=== PATIENT | female | born 1955 ===

== ENCOUNTER 2016-08-17 19:04 | Inpatient (IN) | payer OTHER ==
--- NOTE | ~2016-08-17 | HP ---
History And Physical [address] [place]. [address] NAME: TASHA LEE : 59 STATUS : ADM IN [facility]#: [id number] AGE: 61 ADM/REG DATE : 08/17/16 MR#: [id number] REPORT SERV DATE: 08/18/16 DICTATED BY: STEVEN BECERRIL DATE: 08/18/16 REPORT STATUS : Draft TRANSCRIBED BY: MODL DATE: 08/18/16 DATE OF ADMISSION: 08/17/2016 CHIEF COMPLAINT: A 61-year-old female presenting with bilateral leg cellulitis, left greater than right though. HISTORY OF PRESENTING ILLNESS: The patient states that for several days she has had worsening of chronic rash on her left lower extremity, but it has become extreme with weeping edema, increasing redness, and heat and discomfort. She describes bilateral leg discomfort, left greater than right, around her calves mostly. A heavy aching quality, exacerbated by standing or movement, but only a two to three out of 10 severity. She has had nausea, but no vomiting. No fevers or chills. She has had a slight cough that is nonproductive, but no shortness of breath, no chest pain. No orthopnea, no paroxysmal nocturnal dyspnea. She denies any depression. No hallucinations, no suicidal ideation, no anxiety. REVIEW OF SYSTEMS: Otherwise, 14-point review of systems was obtained and was negative. PAST MEDICAL HISTORY: 1. Depression and anxiety. 2. Schizophrenia/schizoaffective disorder with bipolar features. 3. Pneumonia. 4. No previous urinary tract infection or cellulitis or other known infection. PAST SURGICAL HISTORY: Denies any. ALLERGIES: NO KNOWN DRUG ALLERGIES. SOCIAL HISTORY: The patient is a smoker. Drinks occasional alcohol. She is on disability. She is single, lives alone, has no children. FAMILY HISTORY: Mother and father of "old age." She cannot identify any familial pattern of disease at this time. PHYSICAL EXAMINATION: VITAL SIGNS: Temperature 98.3, pulse 118, blood pressure 101/42, respiratory rate 32, O2 saturation 95% on room air. GENERAL: A pleasant, cooperative female, but no evidence of extreme distress. HEENT: Pupils equal, round, and reactive to light. No conjunctival pallor. No scleral History And Physical [address] [address] NAME: TASHA LEE : 59 STATUS : ADM IN PAT#: [id number] AGE: 61 ADM/REG DATE : 08/17/16 MR#: [id number] REPORT SERV DATE: 08/18/16 DICTATED BY: STEVEN BECERRIL DATE: 08/18/16 REPORT STATUS : Draft TRANSCRIBED BY: MODL DATE: 08/18/16 icterus. Nares are patent. Oropharynx is clear of obstruction. Moist mucous membranes. NECK: Trachea midline. No thyromegaly. LYMPH: No cervical lymphadenopathy. No supraclavicular lymphadenopathy. No inguinal lymphadenopathy. RESPIRATORY: Clear to auscultation at bases. No wheezes, rales, or rhonchi. Normal respiratory effort. CARDIOVASCULAR: Tachycardic, regular rhythm. No murmurs, rubs, or gallops. Patient has chronic appearing lower extremity edema, left slightly more than the right. ABDOMEN: Soft, nontender, nondistended. Normal bowel sounds auscultated throughout. No hepatosplenomegaly. DERMATOLOGICAL: Patient's lower extremities show extensive areas of erythema, heat, swelling, tenderness. The left side has increasing ulcerations with purulent and serous drainage throughout with a "weeping" of skin. Otherwise, warm and dry extremities, no pallor, no cyanosis. PSYCHIATRIC: Normal affect. Good mood. Alert and oriented x3. No depression, no hallucinations, no suicidal ideation, no homicidal ideation. LABORATORY DATA: White blood count 12.4, hemoglobin 9.8, hematocrit 31, platelets 399. Sodium 138, potassium 4.2, chloride 103, bicarb 24, BUN 7, creatinine 0.63, glucose 96, brain natriuretic peptide 18, albumin 2.4. Liver enzymes within normal limits. STUDIES: Chest x-ray shows large body habitus, difficult to interpret, but no acute cardiopulmonary process can be identified. ASSESSMENT AND PLAN: 1. Sepsis with white blood cell count of 12.4, tachycardia, tachypnea, infection. Check blood cultures, check wound cultures, place on IV vancomycin, IV Zosyn. 2. Bilateral leg cellulitis, left greater than right. Obtain a Wound Care consult, place on IV antibiotics. 3. Anemia, check studies. 4. Schizoaffective disorder, seems well controlled. No suicidal ideation, no depression, no hallucinations. KP/MODL Steven Becerril M.D. / [id number]
--- NOTE | ~2016-08-17 | DS ---
Discharge Summary [facility] [address] [place]. [address] NAME: TASHA LEE : 59 STATUS : ADM IN [facility]#: [id number] AGE: 61 ADM/REG DATE : 08/17/16 MR#: [id number] REPORT SERV DATE: 08/26/16 DICTATED BY: MAYO YEH DATE: 08/26/16 REPORT STATUS : Draft TRANSCRIBED BY: MODL DATE: 08/26/16 ADMISSION DATE: 08/17/2016 DISCHARGE DATE: 08/26/2016 DISCHARGE DIAGNOSES: 1. Bilateral lower extremity cellulitis. 2. Anemia. 3. Schizoaffective disorder with depression and anxiety. CONSULTANTS DURING THIS HOSPITALIZATION: None. INVASIVE PROCEDURES DONE DURING THIS HOSPITALIZATION: None. IMAGING: Dopplers of both lower extremities done on 08/18 showing no evidence of DVT in the right or the left lower extremity. BRIEF HISTORY OF PRESENT ILLNESS: The patient is a 61-year-old female with cellulitis, draining and weeping edema, redness to both lower extremities. So, she was admitted. For detailed history and physical exam, please see note dictated by Dr. Mack Mayorga on 08/17/2016. HOSPITAL COURSE: After being admitted to the hospital, this patient was cared for by Dr. Chris Shepard. Please refer to interim summary dictated by Dr. Shepard on 08/24/2016. I took over this patient's care on 08/25. This patient was doing relatively well. We were awaiting insurance approval for possible skilled facility; however, insurance denied that. We have managed to find a home health company that takes her insurance and provide wound care in the home setting. She has finished a 10 day course of antibiotics and will discontinue antibiotics at this time as her infection has resolved. She will continue her medications for her psychiatric disorder and follow up in the outpatient setting. DISCHARGE DISPOSITION: Home. DISCHARGE ACTIVITY: As tolerated. DISCHARGE DIET: Low sodium diet. DISCHARGE MEDICATIONS: Abilify 20 mg once every morning, vitamin D 50,000 units once every 7 days, iron 300 mg twice daily [id number], hydrochlorothiazide 25 mg once daily, Mobic 15 mg once daily, nystatin apply topically twice daily, Artane 5 mg p.o. three times daily. DISCHARGE FOLLOWUP: Will be with primary care physician in one week and her psychiatrist. More than 30 minutes spent planning this patient's discharge, reconciling medications, writing prescriptions, discussing hospital care, follow up with the patient at the bedside, and documenting this discharge. Discharge Summary [place] [address] [facility] [address] NAME: TASHA LEE : 59 STATUS : ADM IN [facility]#: [id number] AGE: 61 ADM/REG DATE : 08/17/16 MR#: [id number] REPORT SERV DATE: 08/26/16 DICTATED BY: MAYO YEH DATE: 08/26/16 REPORT STATUS : Draft TRANSCRIBED BY: DALJIT DATE: 08/26/16 BELEN/DALJIT Mayo Yeh M.D. / [id number] CC: Mayo Yeh M.D.
--- NOTE | ~2016-08-17 | IDS ---
Interim Discharge Summary [facility] [address] [place]. [address] NAME: TASHA LEE : 59 STATUS : ADM IN [facility]#: [id number] AGE: 61 ADM/REG DATE : 08/17/16 MR#: [id number] REPORT SERV DATE: 08/23/16 DICTATED BY: DANIEL JIMENEZ DATE: 08/23/16 REPORT STATUS : Draft TRANSCRIBED BY: MODL DATE: 08/23/16 ADMISSION DATE: 08/17/2016 DISCHARGE DATE: CURRENT HOSPITAL DIAGNOSES: 1. Bilateral cellulitis. 2. Anemia. 3. Schizoaffective disorder with depression and anxiety. CONSULTATIONS: None. PROCEDURES: Doppler of the lower extremity done on the showing no evidence of DVT in the right or left lower extremity. CURRENT PHYSICAL FINDINGS AND HISTORY OF PRESENT ILLNESS: Please see dictated H and P by Dr. Mayorga. In brief, the patient is a 61-year-old female with above medical history, presented with complaint of cellulitis, draining weeping edema, redness, and discomfort in her lower extremities, left greater than right prior to admission. Vital signs at the time of admission, blood pressure was 163/73, temperature was 98.3, and her T-max has been in the low 99. Heart rate and O2 sats have all been acceptable. Initial lab work noted a BMP that was normal. LFTs were normal. Iron level was 14. B12 level was 174. Thyroid was normal. BNP was 18.8. Lactate was 0.9. Initial white count was 12.4, subsequent was 10.6 and 10.3, her presenting hemoglobin was 9.8 with hematocrit of 30.9, slightly improved during her stay. Wound cultures have grown out Klebsiella pneumonia and MSSA. Blood cultures are negative x4 days and stool done on the and for occult blood, all 3 were negative. The patient was admitted for the cellulitis prior to cultures though she was started on vancomycin and Zosyn. Zosyn was dosed per pharmacy. I started seeing her on the . The anemia and the low counts were noted. She was started on B12 1000 IM a day and iron b.i.d. Ultrasound of the lower extremities were done to rule out DVT which were negative. She was also started on a mild diuretic HCTZ 25. She was placed on DVT prophylaxis. Wound Care consult was requested. The patient was noted to have slow improvement on her cellulitis. Vancomycin was discontinued on the after preliminary cultures and she was switched on the to Unasyn as both organisms were sensitive to them. Over the proceeding days, the patient continued to improve with decreased edema, decreased erythema, decreased drainage and improving wounds. She was not having any fever. No other complaints. She already has an outpatient colonoscopy scheduled for next month for routine surveillance. DISPOSITION: Tentatively planning on discharging to skilled care in the morning for further wound care as arranging home health and wound care at home was not possible. Also the patient's family states that she is in a very substandard living condition and they are afraid that her symptoms would rapidly turn on discharge without close supervision. We will discontinue her B12 today. Interim Discharge Summary [address] [address] NAME: TASHA LEE : 59 STATUS : ADM IN [facility]#: [id number] AGE: 61 ADM/REG DATE : 08/17/16 MR#: [id number] REPORT SERV DATE: 08/23/16 DICTATED BY: DANIEL JIMENEZ DATE: 08/23/16 REPORT STATUS : Draft TRANSCRIBED BY: MODDiana DATE: 08/23/16 RADHA/DALJIT Daniel Jimenez M.D. / [id number] CC: Daniel Jimenez M.D.
[~2016-08-17 19:04] MED LIST: ABILIFY20 MG PO; ARTANE 5 MG TAB5 MG PO; MOBIC15 MG PO; NYSTATPOW TOP; VITD PO
[2016-08-17 19:55] LABS: BASOPHILS 0.2 %; BASOPHILS ABSOLUTE 0.02 10/3/uL (0.0-0.16); EOSINOPHILS 3.5 %; EOSINOPHILS ABSOLUTE 0.44 10/3/uL (0.0-0.53); HEMATOCRIT 30.9 % (36.0-48.0); HEMOGLOBIN 9.8 g/dL (12.0-16.0); IMMATURE GRANULOCYTES 1.2 %; IMMATURE GRANULOCYTES ABSOLUTE 0.15 10/3/uL (0.0-0.11); LYMPHOCYTES 11.5 %; LYMPHOCYTES ABSOLUTE 1.43 10/3/uL (0.67-4.30); MEAN CORPUS HGB CONC 31.7 g/dL (32.0-36.0); MEAN CORPUSCULAR HEMOGLOB 25.7 pg (26.0-34.0); MEAN CORPUSCULAR VOLUME 80.9 fL (80-100); MEAN PLATELET VOLUME 8.9 fL (9.2-13.0); MONOCYTES 9.1 %; MONOCYTES ABSOLUTE 1.13 10/3/uL (0.21-1.20); NEUTROPHILS 74.5 %; NEUTROPHILS ABSOLUTE 9.25 10/3/uL (2.02-8.40); PLATELET COUNT 399 10/3/uL (150-400); RBC DISTRIBUTION WIDTH 15.5 % (12.0-16.0); RED CELL COUNT 3.82 10/6/uL (4.0-5.6); WHITE BLOOD CELLS 12.4 10/3/uL (4.5-10.5)
[2016-08-17 19:56] LABS: MANUAL DIFF NO %
[2016-08-17 20:10] LABS: A/G RATIO 0.5 (0.7-1.9); ALBUMIN 2.4 G/DL (3.5-5.0); ALKALINE PHOSPHATASE 96 U/L (45-117); BUN (BLOOD UREA NITROGEN) 7 MG/DL (6-23); CALCIUM, SERUM 8.4 MG/DL (8.5-10.4); CHLORIDE, SERUM 103 MMOL/L (96-112); CO2 (CARBON DIOXIDE) 24 MMOL/L (24-34); CREATININE 0.63 MG/DL (0.55-1.02); GFR AFRICAN AMERICAN 114 ML/MIN (>=60); GFR NON AFRICAN AMERICAN 98 ML/MIN (>=60); GLOBULIN 4.8 G/DL (2.5-4.1); GLUCOSE, SERUM 96 MG/DL (60-99); POTASSIUM, SERUM 4.2 MMOL/L (3.5-5.3); SGOT(AST) 10 U/L (5-40); SGPT(ALT) 16 U/L (5-65); SODIUM, SERUM 138 MMOL/L (135-148); TOTAL BILIRUBIN 0.6 MG/DL (0-1.2); TOTAL PROTEIN 7.2 G/DL (6.0-8.5)
[2016-08-17 23:10] LABS: LACTATE 1.4 MMOL/L (0.3-2.4)
[2016-08-18 05:11] LABS: BASOPHILS 0.2 %; BASOPHILS ABSOLUTE 0.02 10/3/uL (0.0-0.16); EOSINOPHILS 2.7 %; EOSINOPHILS ABSOLUTE 0.29 10/3/uL (0.0-0.53); HEMATOCRIT 29.6 % (36.0-48.0); HEMOGLOBIN 9.4 g/dL (12.0-16.0); IMMATURE GRANULOCYTES 0.9 %; IMMATURE GRANULOCYTES ABSOLUTE 0.09 10/3/uL (0.0-0.11); LYMPHOCYTES 11.3 %; LYMPHOCYTES ABSOLUTE 1.19 10/3/uL (0.67-4.30); MANUAL DIFF NO %; MEAN CORPUS HGB CONC 31.8 g/dL (32.0-36.0); MEAN CORPUSCULAR HEMOGLOB 25.6 pg (26.0-34.0); MEAN CORPUSCULAR VOLUME 80.7 fL (80-100); MEAN PLATELET VOLUME 8.6 fL (9.2-13.0); MONOCYTES 9.4 %; MONOCYTES ABSOLUTE 0.99 10/3/uL (0.21-1.20); NEUTROPHILS 75.5 %; NEUTROPHILS ABSOLUTE 7.97 10/3/uL (2.02-8.40); PLATELET COUNT 433 10/3/uL (150-400); RBC DISTRIBUTION WIDTH 15.4 % (12.0-16.0); RED CELL COUNT 3.67 10/6/uL (4.0-5.6); WHITE BLOOD CELLS 10.6 10/3/uL (4.5-10.5)
[2016-08-18 05:18] LABS: INTERNATIONAL NORMAL RATI 1.1 UNITS (-); PARTIAL THROMBO TIME 32.2 SEC (22.5-37.2); PROTIME (NOT ORD) 14.1 SEC (12.0-14.5)
[2016-08-18 05:49] LABS: A/G RATIO 0.5 (0.7-1.9); ALBUMIN 2.2 G/DL (3.5-5.0); ALKALINE PHOSPHATASE 86 U/L (45-117); BUN (BLOOD UREA NITROGEN) 6 MG/DL (6-23); CALCIUM, SERUM 8.3 MG/DL (8.5-10.4); CHLORIDE, SERUM 106 MMOL/L (96-112); CO2 (CARBON DIOXIDE) 26 MMOL/L (24-34); CREATININE 0.62 MG/DL (0.55-1.02); FERRITIN 45 NG/ML (8-252); GFR AFRICAN AMERICAN 114 ML/MIN (>=60); GFR NON AFRICAN AMERICAN 99 ML/MIN (>=60); GLOBULIN 4.5 G/DL (2.5-4.1); IRON BINDING CAPACITY 251 MCG/DL (225-410); IRON, SERUM 14 MCG/DL (35-150); POTASSIUM, SERUM 4.2 MMOL/L (3.5-5.3); SGOT(AST) 8 U/L (5-40); SGPT(ALT) 12 U/L (5-65); SODIUM, SERUM 141 MMOL/L (135-148); TOTAL BILIRUBIN 0.5 MG/DL (0-1.2); TOTAL PROTEIN 6.7 G/DL (6.0-8.5); ULTRASENSITIVE TSH 0.593 MCIU/ML (0.358-3.740)
[2016-08-18 05:52] LABS: GLUCOSE, SERUM 117 MG/DL (60-99)
[2016-08-18 05:53] LABS: FOLATE 19.6 NG/ML (>5.2)
[2016-08-20 07:59] LABS: BASOPHILS 0.2 %; BASOPHILS ABSOLUTE 0.02 10/3/uL (0.0-0.16); EOSINOPHILS 3.6 %; EOSINOPHILS ABSOLUTE 0.37 10/3/uL (0.0-0.53); HEMOGLOBIN 10.5 g/dL (12.0-16.0); IMMATURE GRANULOCYTES 1.2 %; IMMATURE GRANULOCYTES ABSOLUTE 0.12 10/3/uL (0.0-0.11); LYMPHOCYTES 17.6 %; LYMPHOCYTES ABSOLUTE 1.81 10/3/uL (0.67-4.30); MEAN CORPUS HGB CONC 31.3 g/dL (32.0-36.0); MEAN CORPUSCULAR HEMOGLOB 25.2 pg (26.0-34.0); MEAN CORPUSCULAR VOLUME 80.8 fL (80-100); MEAN PLATELET VOLUME 8.8 fL (9.2-13.0); MONOCYTES 7.8 %; NEUTROPHILS 69.6 %; NEUTROPHILS ABSOLUTE 7.17 10/3/uL (2.02-8.40); PLATELET COUNT 429 10/3/uL (150-400); RBC DISTRIBUTION WIDTH 15.3 % (12.0-16.0); RED CELL COUNT 4.16 10/6/uL (4.0-5.6); WHITE BLOOD CELLS 10.3 10/3/uL (4.5-10.5)
[2016-08-20 08:00] LABS: HEMATOCRIT 33.6 % (36.0-48.0); MANUAL DIFF NO %
[2016-08-20 08:12] LABS: BUN (BLOOD UREA NITROGEN) 7 MG/DL (6-23); CALCIUM, SERUM 8.8 MG/DL (8.5-10.4); CHLORIDE, SERUM 105 MMOL/L (96-112); CO2 (CARBON DIOXIDE) 27 MMOL/L (24-34); CREATININE 0.63 MG/DL (0.55-1.02); GFR AFRICAN AMERICAN 114 ML/MIN (>=60); GFR NON AFRICAN AMERICAN 98 ML/MIN (>=60); GLUCOSE, SERUM 116 MG/DL (60-99); POTASSIUM, SERUM 4.5 MMOL/L (3.5-5.3); SODIUM, SERUM 141 MMOL/L (135-148)
[2016-08-26 07:15] LABS: BASOPHILS 0.5 %; BASOPHILS ABSOLUTE 0.04 10/3/uL (0.0-0.16); EOSINOPHILS 3.2 %; EOSINOPHILS ABSOLUTE 0.28 10/3/uL (0.0-0.53); HEMOGLOBIN 11.8 g/dL (12.0-16.0); IMMATURE GRANULOCYTES 0.8 %; IMMATURE GRANULOCYTES ABSOLUTE 0.07 10/3/uL (0.0-0.11); LYMPHOCYTES 21.5 %; MEAN CORPUS HGB CONC 31.3 g/dL (32.0-36.0); MEAN CORPUSCULAR HEMOGLOB 25.6 pg (26.0-34.0); MEAN CORPUSCULAR VOLUME 81.8 fL (80-100); MEAN PLATELET VOLUME 8.7 fL (9.2-13.0); MONOCYTES 7.2 %; MONOCYTES ABSOLUTE 0.64 10/3/uL (0.21-1.20); NEUTROPHILS 66.8 %; PLATELET COUNT 406 10/3/uL (150-400); RBC DISTRIBUTION WIDTH 15.8 % (12.0-16.0); RED CELL COUNT 4.61 10/6/uL (4.0-5.6); WHITE BLOOD CELLS 8.8 10/3/uL (4.5-10.5)
[2016-08-26 07:16] LABS: HEMATOCRIT 37.7 % (36.0-48.0); MANUAL DIFF NO %
[2016-08-26 07:24] LABS: ALBUMIN 2.8 G/DL (3.5-5.0); BUN (BLOOD UREA NITROGEN) 10 MG/DL (6-23); CALCIUM, SERUM 9.5 MG/DL (8.5-10.4); CHLORIDE, SERUM 103 MMOL/L (96-112); CO2 (CARBON DIOXIDE) 28 MMOL/L (24-34); CREATININE 0.77 MG/DL (0.55-1.02); GFR AFRICAN AMERICAN 98 ML/MIN (>=60); GFR NON AFRICAN AMERICAN 85 ML/MIN (>=60); GLUCOSE, SERUM 96 MG/DL (60-99); PHOSPHORUS, SERUM 3.6 MG/DL (2.5-4.5); SODIUM, SERUM 139 MMOL/L (135-148)
[2016-08-26] MEDS ORDERED: FESO4 PO (11:09)
[2016-08-26] MEDS ORDERED: HYDROCHLOROT25 MG PO (11:09)
[2016-08-26] MEDS ORDERED: [UNRECOGNIZED DRUG - OTHER] (11:10)
== END 2016-08-26 13:12 | disposition home health service (06) | DRG 603 ==
LOC: ER 19:04 → 4SO 21:53
PROVIDERS: Hospitalist; Internal Medicine
DX: L03.116 Cellulitis of left lower limb (principal); F25.0 Schizoaffective disorder, bipolar type; I10 Essential (primary) hypertension; B96.1 Klebsiella pneumoniae [K. pneumoniae] as the cause of diseases classified elsewhere; F17.200 Nicotine dependence, unspecified, uncomplicated; D64.9 Anemia, unspecified; B95.61 Methicillin susceptible Staphylococcus aureus infection as the cause of diseases classified elsewhere
CPT/HCPCS: 71010; 80048; 80053; 80069; 82272; 82607; 82728; 82746; 83540; 83550; 83605; 83735; 83880; 84443; 85025; 85610; 85730; 87040; 87070; 87077; 87186; 87205; 93970; 94640; 96365; 99284; A9270-GY; J0295; J2543; J3370